=== PATIENT | female | born 2000 | race Caucasian/White ===

== ENCOUNTER 2024-01-20 15:04 | Outpatient (AMB) | payer OTHER, SELFPAY ==
--- NOTE | 2024-01-20 15:07 | MHC.OFFVIS ---
Vital Signs 01/20/24 15:08 Height 5 ft 4 in Weight 130 lb 15.273 oz BMI 22.5 BP 120/74 Blood Pressure Location Rt brachial Position Sitting Pulse 74 Pulse Source Pulse Oximeter Pulse Oximetry (%) 99 Oxygen Delivery Method Room Air Intake Visit Reasons: + LEANDRO Intake Note: New patient presents today for consult, referred by [facility] [place]. Positive/elevated LEANDRO ? Raynauds Reports cold hands and feet Symptoms started approx 1 year ago Allergies No Known Allergies Allergy (Verified 01/20/24 15:09) Medication List - Last Reconciled 01/20/24 by Delilah Kong MD No Known Home Meds HPI Comments Details: This is a 23-year-old female who presents for evaluation of a positive LEANDRO. Over the last year patient has had multiple symptoms. Over the last 6 months she has been having difficulty sleeping, night sweats, feeling febrile but does not have a fever when she checks it. She would also have intermittent episodes of joint pain in her elbows, wrists, knees. No significant swelling. Morning stiffness of her back lasts 20 minutes. She takes Advil as needed for joint pain about once every 2 weeks. She also stated that hands and feet get cold and turn slightly blue. She stated that she gained 20 lb the last few months since she stopped her control. She denies any history of DVT/PE. She denies history of . She denies any oral ulcers. Denies any hair loss. Denies any blood or frothy urine. She is unaware of any family history of an autoimmune rheumatic disease. 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 Female Reproductive History Menstrual Total pregnancies: 0 Full term: 0 Review of Systems Const Denies fever(s) and Reports weight gain Card Denies dyspnea Resp Reports no additional complaints and Denies dyspnea Musc Reports back pain, Reports arthralgias, Denies joint swelling and Reports stiffness Skin/Breast Reports change in pigmentation Physical Exam Vital Signs: Last Vital Signs Pulse 74 01/20/24 15:08 BP 120/74 01/20/24 15:08 Pulse Ox 99 01/20/24 15:08 Oxygen Delivery Method Room Air 01/20/24 15:08 BMI result Body Mass Index 22.5 Const General: cooperative, healthy appearing and comfortable Nutritional Appearance: average body habitus Orientation/consciousness: patient oriented x3 Limitations: no limitations HEENT Head: Yes normocephalic and Yes atraumatic Mouth: moist mucous membranes Resp Effort & Inspection: normal respiratory effort and able to speak in complete sentences Auscultation: clear to auscultation bilaterally Cardio Rate: regular rate Rhythm: regular rhythm Skin Other: Mild livedo reticularis on thighs and legs Neuro General: patient oriented x3 Extrem Other: No active synovitis Normal nailfold capillaroscopy Mildly cool and faint blue toes Bilateral hyper flexible elbows Results Reviewed Results Reviewed: LEANDRO 1-1280 speckled Assessment & Plan Assessment & Plan (1) LEANDRO positive: Code(s): R76.8 - Other specified abnormal immunological findings in serum Category: Medical Plan: This is a 23-year-old female who presents for evaluation of positive LEANDRO 1-1280 speckled pattern. This was ordered in the context of night sweats, feeling febrile, Raynaud's, arthralgias. Will order comprehensive serology to screen for underlying autoimmune rheumatic disease. Follow-up in 5-6 weeks Plan I spent 45 minutes reviewing patient's chart, evaluating patient, ordering diagnostic workup, counseling patient and documenting in the chart Orders: Orders Anti Extractable Nuclear Ag Today M32.9 - Systemic lupus erythematosus, unspecified Anti DNA DS Antibody Today M32.9 - Systemic lupus erythematosus, unspecified Complement C3 Today M32.9 - Systemic lupus erythematosus, unspecified C Reactive Protein Today M32.9 - Systemic lupus erythematosus, unspecified Erythrocyte Sedimentation Rate Today M32.9 - Systemic lupus erythematosus, unspecified UA w Microscopic Today M32.9 - Systemic lupus erythematosus, unspecified Complete Blood Count Auto Diff Today M32.9 - Systemic lupus erythematosus, unspecified Comprehensive Met. Panel Today M32.9 - Systemic lupus erythematosus, unspecified Hepatitis A,B,C Profile Today Z11.59 - Encounter for screening for other viral diseases T Spot TB Today Z11.7 - Encounter for testing for latent tuberculosis infection Scleroderma 12 Panel Today M34.9 - Systemic sclerosis, unspecified Rheumatoid Factor Today M25.50 - Pain in unspecified joint Beta-2 Glycoprotein Antibody Today D68.61 - Antiphospholipid syndrome Cardiolipin Antibodies Today D68.61 - Antiphospholipid syndrome Lupus Anticoagulant Panel Today D68.61 - Antiphospholipid syndrome Thyroid Peroxidase Antibodies Today E07.9 - Disorder of thyroid, unspecified Thyroglobulin Antibodies Today E07.9 - Disorder of thyroid, unspecified Creatine Kinase Total Today R76.8 - Other specified abnormal immunological findings in serum LEANDRO Reflex Titer and Pattern Today M32.9 - Systemic lupus erythematosus, unspecified Complement C4 Today M32.9 - Systemic lupus erythematosus, unspecified DNA Double Stranded-Crithidia Today M32.9 - Systemic lupus erythematosus, unspecified Protein Creatinine Ratio, Ur Today M32.9 - Systemic lupus erythematosus, unspecified Sjogren's Antibodies Today M32.9 - Systemic lupus erythematosus, unspecified Cyclic Citrullinated Peptide Today M25.50 - Pain in unspecified joint TSH reflex Free T4 Today E07.9 - Disorder of thyroid, unspecified Coding Level of Care Code New Pt Level 4 (12345) Diagnoses LEANDRO positive R76.8
[2024-01-20 15:08] VITALS: BP 120/74; PULSE 74; O2SAT 99; BMI 22.5
== END 2024-01-20 15:35 | disposition home or self-care (01) ==
PROVIDERS: PCP Physician Assistant Medical; Visit Provider Student in an Organized Health Care Education/Training Program
DX: R76.8 Other specified abnormal immunological findings in serum (principal)
CPT/HCPCS: 99204

== ENCOUNTER → 2024-01-20 15:04 | Outpatient (BNVA) | payer OTHER, SELFPAY | PROVIDERS: PCP Physician Assistant Medical; Visit Provider Student in an Organized Health Care Education/Training Program ==

== ENCOUNTER 2024-01-23 12:30 | Outpatient (REF) | payer OTHER, SELFPAY ==
[2024-01-23 13:01] LABS: MANUAL DIFF FLAG NO
[2024-01-23 13:49] LABS: Basophils Percent Auto 0.3 % (0-2); Eosinophils Absolute Auto 0.1 X10*3/uL (0.0-0.4); Eosinophils Percent Auto 1.3 % (0-4); Hematocrit 36.9 % (37.0-47.0); Hemoglobin 12.5 g/dl (12.0-16.0); Imm Gran Abs Auto 0.03 X10*3/uL (0.00-0.03); Imm Gran Pct Auto 0.4 % (0.0-0.4); Lymphocytes Absolute Auto 2.2 X10*3/uL (1.2-4.9); Lymphocytes Percent Auto 29.8 % (20-40); Mean Corpuscular HGB Conc 33.9 g/dl (31.0-35.0); Mean Corpuscular Hemoglobin 32.1 pg (27.0-33.0); Mean Corpuscular Volume 94.6 fL (80.0-98.0); Mean Platelet Volume 10.2 fL (9.4-12.3); Monocytes Absolute Auto 0.6 X10*3/uL (0.1-1.2); Monocytes Percent Auto 7.3 % (2-11); Neutrophils Absolute Auto 4.6 x10*3/uL (2.0-8.3); Neutrophils Percent Auto 60.9 % (45-73); Platelet Count 300 X10*3/uL (160-400); Red Cell Distribution Width 12.5 % (11.0-16.0); White Blood Count 7.5 X10*3/uL (4.8-10.8)
[2024-01-23 14:21] LABS: Rheumatoid Factor < 13.0 IU/mL (<15.0)
[2024-01-23 14:26] LABS: Erythrocyte Sedimentation Rate 4 MM/HR (0-20)
[2024-01-23 14:34] LABS: Alanine Aminotransferase 19 U/L (0-31); Albumin Level 4.5 g/dL (3.5-5.0); Alkaline Phosphatase 48 U/L (39-117); Anion Gap 12 (12-20); Aspartate Amino Transferase 20 U/L (5-31); Bilirubin Total 0.3 mg/dL (0.0-1.0); Blood Urea Nitrogen 14 mg/dL (9-16); C Reactive Protein < 0.04 mg/dL (< or = 0.50); Calcium 9.3 mg/dL (8.4-10.2); Carbon Dioxide 28 mmol/L (22-29); Chloride 104 mmol/L (96-108); Estimated Glomerular Filt Rate > 60; Glucose Random 88 mg/dL (60-115); Potassium 3.3 mmol/L (3.3-5.1); Sodium 141 mmol/L (135-145)
[2024-01-23 14:44] LABS: TSH reflex Free T4 1.61 uIU/mL (0.32-4.0)
[2024-01-23 15:45] LABS: Appearance Urine Clear; Color Urine Yellow; Glucose Urine UA Negative (Negative); Leukocyte Esterase Urine Negative (Negative); Nitrite Urine Negative (Negative); PH 7.5 (5.0-9.0); Specific Gravity - Urine <= 1.005 (1.005-1.025); Urine Blood Negative (Negative); Urine Ketones Negative (Negative); Urine Protein Negative (Neg-Trace)
[2024-01-23 15:52] LABS: Bacteria Urine None Seen (None Seen); Hyaline Casts Urine 0-2 /LPF (0-2); RBC Urine 0-2 /HPF (0-2); Squamous Epithelial Cell Urine 0-2 /HPF (0-2); WBC Urine 0-5 /HPF (0-5)
[2024-01-23 16:20] LABS: Creatinine Urine 8.09 mg/dL; Total Protein Urine Random < 7 mg/dL (<12)
[2024-01-24 04:40] LABS: HBS Num1 0.83 mIU/mL (0-7.99); HBc Num1 0.09 S/CO (0.00-0.79); HBsAGNum1 0.33 S/CO (0.00-0.99); Hepatitis A Antibody IgM 0.17 Index (0-0.79); Hepatitis B Core Antibody Nonreactive (Nonreactive); Hepatitis B Surface Antigen Negative (Negative); ~HepC Num1 0.14 S/CO (0.00-0.79); ~Hepatitis A Antibody IgM Nonreactive (Nonreactive); ~Hepatitis B Surface Antibody NONREACTIVE (Nonreactive); ~Hepatitis C Antibody Nonreactive (Nonreactive)
[2024-01-24 17:34] LABS: Complement C3 93 mg/dL (83-193)
[2024-01-24 19:27] LABS: Thyroglobulin Antibodies <1 IU/mL (< or = 1); Thyroid Peroxidase Antibodies 3 IU/mL (<9)
[2024-01-24 20:34] LABS: Anti DNA DS Antibody 3 IU/mL; Antibody to SS-A Antigen <1.0 NEG AI (<1.0 NEG); Antibody to SS-B Antigen <1.0 NEG AI (<1.0 NEG); SM/Ribonucleoprotein Ab <1.0 NEG AI (<1.0 NEG); Smith Protein <1.0 NEG AI (<1.0 NEG)
[2024-01-24 20:38] LABS: Cardiolipin IgG Ab <2.0 GPL-U/mL; Cardiolipin IgM Ab 11.9 MPL-U/mL
[2024-01-27 08:59] LABS: TS Negative Control Passed; TS Panel A 1; TS Panel B 0; TS Positive Control Passed; TSpotTB Negative (Negative)
[2024-01-27 09:03] LABS: PTT (LAC) Screen 36 sec (<=40)
[2024-01-27 13:58] LABS: Cyclic Citrullinated Peptide <16 UNITS
[2024-01-28 15:27] LABS: Anti Nuclear Antibody Screen POSITIVE (NEGATIVE)
[2024-01-29 14:08] LABS: Beta-2 Glycoprotein IgA <2.0 U/mL (<20.0); Beta-2 Glycoprotein IgG <2.0 U/mL (<20.0); Beta-2 Glycoprotein IgM 11.3 U/mL (<20.0)
[2024-02-02 16:53] LABS: DNAds, Crithidia Antibody Negative (Negative)
[2024-02-02 20:23] LABS: Centromere Protein A Ab <11 SI (<11); Centromere Protein B Ab <11 SI (<11); Fibrillarin Ab <11 SI (<11); PM SCL 100 Ab <11 SI (<11); PM SCL 75 Ab <11 SI (<11); RNA Polymerase III RP11 Ab <11 SI (<11); RNA Polymerase III RP155 Ab <11 SI (<11); SCL-70 Extractable Nuclear Ab <11 SI (<11); Th-To Ab <11 SI (<11); U1 SNRNP RNP 70KD <11 SI (<11); U1 SNRNP RNP A <11 SI (<11); U1 SNRNP RNP C <11 SI (<11)
== END 2024-01-23 12:31 | disposition home or self-care (01) ==
LOC: HO.LAB 12:30
PROVIDERS: PCP Physician Assistant Medical; Visit Provider Student in an Organized Health Care Education/Training Program
DX: Z11.59 Encounter for screening for other viral diseases (principal); Z11.7 Encounter for testing for latent tuberculosis infection; M32.9 Systemic lupus erythematosus, unspecified; M34.9 Systemic sclerosis, unspecified; E07.9 Disorder of thyroid, unspecified; M25.50 Pain in unspecified joint; D68.61 Antiphospholipid syndrome; R76.8 Other specified abnormal immunological findings in serum; Z72.89 Other problems related to lifestyle
CPT/HCPCS: 36415; 80053; 81001; 82550; 82570; 84156; 84182; 84443; 85025; 85597; 85598; 85613; 85652; 85730; 86038; 86039; 86140; 86146; 86147; 86160; 86200; 86225; 86235; 86255; 86376; 86431; 86481; 86704; 86706; 86709; 86800; 86803; 87340

== ENCOUNTER 2024-03-03 10:08 | Outpatient (AMB) | payer OTHER, SELFPAY ==
--- NOTE | 2024-03-03 10:09 | MHC.OFFVIS ---
Vital Signs 03/03/24 10:14 Height 5 ft 4 in Weight 130 lb 4.691 oz BMI 22.4 BP 100/72 Blood Pressure Location Lt brachial Position Sitting Pulse 82 Pulse Source Pulse Oximeter Pulse Oximetry (%) 100 Oxygen Delivery Method Room Air Intake Visit Reasons: + LEANDRO/CM Intake Note: Patient presents for + LEANDRO. Allergies No Known Allergies Allergy (Verified 03/03/24 10:13) Medication List - Last Reconciled 03/03/24 by Delilah Kong MD No Known Home Meds HPI Comments Details: Patient returns for follow-up after completion of her diagnostic workup. Continues to feel about the same. She states that the majority of her pain is in her neck and lower back. Denies any swelling Initial history: This is a 23-year-old female who presents for evaluation of a positive LEANDRO. Over the last year patient has had multiple symptoms. Over the last 6 months she has been having difficulty sleeping, night sweats, feeling febrile but does not have a fever when she checks it. She would also have intermittent episodes of joint pain in her elbows, wrists, knees. No significant swelling. Morning stiffness of her back lasts 20 minutes. She takes Advil as needed for joint pain about once every 2 weeks. She also stated that hands and feet get cold and turn slightly blue. She stated that she gained 20 lb the last few months since she stopped her control. She denies any history of DVT/PE. She denies history of . She denies any oral ulcers. Denies any hair loss. Denies any blood or frothy urine. She is unaware of any family history of an autoimmune rheumatic disease. 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 Female Reproductive History Menstrual Total pregnancies: 0 Full term: 0 Review of Systems Const Denies fever(s) and Reports weight gain Card Denies dyspnea Resp Reports no additional complaints and Denies dyspnea Musc Reports back pain, Reports arthralgias, Denies joint swelling and Reports stiffness Physical Exam Vital Signs: Last Vital Signs Pulse 82 03/03/24 10:14 BP 100/72 03/03/24 10:14 Pulse Ox 100 03/03/24 10:14 Oxygen Delivery Method Room Air 03/03/24 10:14 BMI result Body Mass Index 22.4 Const General: cooperative, healthy appearing and comfortable Nutritional Appearance: average body habitus Orientation/consciousness: patient oriented x3 Limitations: no limitations HEENT Head: Yes normocephalic and Yes atraumatic Mouth: moist mucous membranes Resp Effort & Inspection: normal respiratory effort and able to speak in complete sentences Auscultation: clear to auscultation bilaterally Cardio Rate: regular rate Rhythm: regular rhythm Skin Other: Mild livedo reticularis on thighs and legs Neuro General: patient oriented x3 Extrem Other: No active synovitis Normal nailfold capillaroscopy Mildly cool and faint blue toes Bilateral hyper flexible elbows Assessment & Plan Assessment & Plan (1) LEANDRO positive: Code(s): R76.8 - Other specified abnormal immunological findings in serum Category: Medical Plan: This is a 23-year-old female who presents for evaluation of positive LEANDRO 1-1280 speckled pattern. This was ordered in the context of night sweats, feeling febrile, Raynaud's, arthralgias. Upon evaluation I do not see any signs suggestive of an autoimmune rheumatic disease. There is no active synovitis. Labs showed normal inflammatory markers with negative sub serologies. Her repeat LEANDRO is 1:320 in a dfs pattern which is generally seen in normal individuals. Discussed symptoms and signs that are suggestive of an autoimmune rheumatic disease. Advised patient to return as needed Re-evaluate in 1 year Plan I spent 15 minutes reviewing patient's chart, evaluating patient, counseling patient and documenting in the chart Coding Level of Care Code Est Pt Level 3 (68709) Diagnoses LEANDRO positive R76.8
[2024-03-03 10:14] VITALS: BP 100/72; PULSE 82; O2SAT 100; BMI 22.4
== END 2024-03-03 10:36 | disposition home or self-care (01) ==
PROVIDERS: PCP Physician Assistant Medical; Visit Provider Student in an Organized Health Care Education/Training Program
DX: R76.8 Other specified abnormal immunological findings in serum (principal)
CPT/HCPCS: 99213

== ENCOUNTER → 2024-03-03 10:08 | Outpatient (BNVA) | payer OTHER, SELFPAY | PROVIDERS: PCP Physician Assistant Medical; Visit Provider Student in an Organized Health Care Education/Training Program ==